=== PATIENT | female | born 1950 | race Caucasian/White ===

== ENCOUNTER → 2021-02-13 | Outpatient (CLI) | payer MEDICARE ==
[~2021-02-13] MED LIST: ASPIR-LOW81 MG PO; COZAAR50 MG PO; LOPRESSOR50 MG PO; MICROZIDE12.5 MG PO; RELPAX40 MG PO; ZANTAC150 MG PO
== END ==
LOC: MRI 13:00
DX: R47.89 Other speech disturbances (principal); I65.23 Occlusion and stenosis of bilateral carotid arteries; I67.82 Cerebral ischemia; J32.8 Other chronic sinusitis
CPT/HCPCS: 70553; 93880; A9577

== ENCOUNTER → 2021-07-31 | Outpatient (CLI) | payer MEDICARE | LOC: KOH-I 11:52 | DX: R05.3 Chronic cough (principal); K44.9 Diaphragmatic hernia without obstruction or gangrene | CPT/HCPCS: 71046 ==

== ENCOUNTER → 2021-08-17 | Outpatient (CLI) | payer MEDICARE | LOC: KOH-I 10:43 | DX: K76.0 Fatty (change of) liver, not elsewhere classified (principal); N28.1 Cyst of kidney, acquired | CPT/HCPCS: 76700 ==

== ENCOUNTER → 2021-09-19 | Outpatient (CLI) | payer MEDICARE | LOC: CT 12:28 | DX: N28.1 Cyst of kidney, acquired (principal); I10 Essential (primary) hypertension; K76.0 Fatty (change of) liver, not elsewhere classified; Z79.899 Other long term (current) drug therapy | CPT/HCPCS: 36415; 82565; 84520; Q9967 ==

== ENCOUNTER → 2021-11-14 | Outpatient (CLI) | payer MEDICARE | LOC: KOH-I 15:30 | DX: M79.662 Pain in left lower leg (principal) | CPT/HCPCS: 93971 ==

== ENCOUNTER 2022-03-24 06:54 | Emergency (ER) | payer MEDICARE ==
[2022-03-24 07:40] LABS: HEMOGLOBIN 13.7 gm/dl (12.3-15.3); RED BLOOD COUNT 4.6 M/UL (4.00-5.10); WHITE BLOOD COUNT 12.8 K/UL (4.5-11.0)
[2022-03-24 09:06] LABS: BUN/CREATININE RATIO 19 (0-10)
[2022-03-24] MEDS ORDERED: ZOFRAN ODT 4 MG4 MG GT (15:19)
[2022-03-24] MEDS ORDERED: KEPPRA500 MG PO (15:19)
== END 2022-03-24 15:50 | disposition home or self-care (01) ==
LOC: ER1 06:54
PROVIDERS: Student in an Organized Health Care Education/Training Program
DX: R41.82 Altered mental status, unspecified (principal); I10 Essential (primary) hypertension; Z88.0 Allergy status to penicillin
CPT/HCPCS: 36600; 51701; 70450; 70496; 70498; 70553; 71275; 80048; 80076; 80307; 81001; 82803; 82962; 83605; 85027; 93005; 96374; 96375; 99285; A9577; J1885; J1953; Q9967